=== PATIENT | male | born 1975 | race Caucasian/White ===

== ENCOUNTER 2023-10-24 11:32 | Emergency (ER) | payer MEDICAID ==
[~2023-10-24] VITALS: Ht 152.4 cm; Wt 70.8 kg
[2023-10-24 11:43] VITALS: BP 122/75; PULSE 93; RESP 18; TEMP 98.9; O2SAT 96
[2023-10-24 13:28] LABS: BILIRUBIN,URINE NEGATIVE (NEGATIVE); BLOOD, URINE 2+ (NEGATIVE); LEUKOCYTE ESTERASE ,URINE 1+ (NEGATIVE); NITRITE, URINE POSITIVE (NEGATIVE); PROTEIN,URINE 2+ (NEGATIVE); UGLUCOSE 1+ (NEGATIVE); UROBILINOGEN,URINE >=8.0 EU/dL (0.2 - 1)
[2023-10-24 13:30] LABS: APPEARANCE,URINE SLIGHTLY CLOUDY (CLEAR); COLOR,URINE ORANGE (YELLOW)
[2023-10-24 13:49] LABS: BACTERIA,URINE 2+ /HPF (None Seen); MUCUS,URINE 1+ /LPF (None Seen); RBC,URINE 11-20 (MOD) /HPF (0-5); SQUAMOUS EPITHELIAL CELL,UR 4-10 (MOD) /LPF (0-3 (FEW))
[2023-10-24] MEDS ORDERED: SULF-58 PO (14:21)
[2023-10-24] MEDS ORDERED: ACET-10509 PO (14:25)
== END 2023-10-24 15:49 | disposition home or self-care (01) ==
LOC: MED 11:32
DX: N39.0 Urinary tract infection, site not specified (principal); R50.9 Fever, unspecified; Z79.1 Long term (current) use of non-steroidal anti-inflammatories (NSAID); Z79.899 Other long term (current) drug therapy
CPT/HCPCS: 81001; 87086; 87186; 87491; 99283